=== PATIENT | male | born 1995 | race Hispanic/Latino ===

== ENCOUNTER 2019-11-26 15:33 | Emergency (ER) | payer OTHER ==
[~2019-11-26] VITALS: Ht 177.8 cm; Wt 112.5 kg
[2019-11-26] MEDS ORDERED: ONDANSETRON HCL INJ 2MG/ML 2ML 2 MG/ML VIAL IV STA (15:52)
[2019-11-26] MEDS ORDERED: KETOROLAC TROMETHAMINE 30 MG/ML VIAL IV STA (15:52)
[2019-11-26] MEDS ORDERED: MORPHINE SULFATE INJ 4 MG/ML INJ 1ML IV ONE (16:00)
--- NOTE | 2019-11-26 17:26 | Diagnostic Imaging Report ---
History: Fall today Comparison studies: None Technique: Axial images were obtained from T11 through the sacrum. Coronal and sagittal images reconstructed from the axial data. Intravenous contrast: None Dose modulation, iterative reconstruction, and/or weight based adjustment of the mA/kV was utilized to reduce the radiation dose to as low as reasonably achievable. Findings: Number of non-rib bearing vertebral bodies: 5 Alignment: Normal lordosis. No scoliosis. Soft tissues: No abnormalities. Paraspinal muscles: Unremarkable. Vertebrae: No fractures, infection or neoplasm. Degenerative changes: L1-L2: No abnormalities. L2-L3: No abnormalities. L3-L4: No abnormalities. L4-L5: No abnormalities. L5-S1: Asymmetric left disc bulge results in no significant canal stenosis, narrowing of the left subarticular recess and no significant foraminal narrowing Sacroiliac joints: No degenerative changes. Transitional anatomy of the lumbosacral junction with lumbarization of S1. IMPRESSION: 1. No acute abnormality Signed by: DR Cole Carlin M.D. on 11/26/2019 5:23 PM
[2019-11-26] MEDS ORDERED: HYDROCODONE/APAP 10MG-325MG TAB PO ONE (17:45)
--- NOTE | 2019-11-26 19:37 | NUR ---
PT DISCHARGED BY Romaine PICHARDO RN AT 193
== END 2019-11-26 19:37 | disposition home or self-care (01) ==
LOC: ER 15:33
DX: S33.5XXA Sprain of ligaments of lumbar spine, initial encounter (principal); W01.198A Fall on same level from slipping, tripping and stumbling with subsequent striking against other object, initial encounter; Y92.488 Other paved roadways as the place of occurrence of the external cause; F17.210 Nicotine dependence, cigarettes, uncomplicated
CPT/HCPCS: 72131; 99283; J1885; J2270; J2405